=== PATIENT | female | born 1990 | race Two or more races ===

== ENCOUNTER 2023-09-16 17:06 | Emergency (ER) | payer OTHER ==
[~2023-09-16] VITALS: Ht 157.5 cm; Wt 83.0 kg
[2023-09-16] MEDS ORDERED: PRENA1 TRUE CO1 EACH (17:13)
[2023-09-16] MEDS ORDERED: PROMETRIUM200 MG PO (17:13)
[2023-09-16 17:53] LABS: HEMATOCRIT 36.5 % (36.0-45.00); HEMOGLOBIN 12.5 g/dL (12.0-15.00); MEAN CELL VOLUME 90.6 fL (80.00-100.00); MEAN CORPUSCULAR HGB CONC 34.3 g/dl (32.0-36.0); PLATELET COUNT 326 K/uL (150-450); RED BLOOD COUNT 4.03 M/uL (4.00-6.00); RED CELL DISTRIBUTION WIDTH 13.5 % (11.5-14.5)
[2023-09-16 18:17] LABS: INR < 0.93; PARTIAL THROMBOPLASTIN TIME 27.1 SECONDS (22.0-34.0); PROTHROMBIN TIME 9.6 SECONDS (9.0-11.5)
[2023-09-16 18:37] LABS: CALCIUM 8.7 mg/dL (8.5-10.1); CREATININE SERUM 0.52 mg/dL (0.55-1.02); GFR 134.98; POTASSIUM 3.71 mEq/L (3.5-5.1)
[2023-09-16 18:38] LABS: URINE APPEARANCE Clear; URINE BILIRRUBIN Negative (NEGATIVE); URINE BLOOD Small; URINE COLOR Yellow; URINE GLUCOSE Negative (NEGATIVE); URINE LEUKOCYTE Negative; URINE NITRATE Negative; URINE PROTEIN Negative (NEGATIVE)
[2023-09-16 18:41] LABS: URINE BACTERIA 196.4 uL (0.0-1933); URINE EPITHELIAL CELLS 3.3 uL (0.0-38.8); URINE RBC 16.5 uL (0.0-20.8); URINE WBC 5.2 uL (0.0-23.2)
== END 2023-09-16 21:46 ==
LOC: ER 17:07
PROVIDERS: Nurse Practitioner Family
DX: O20.8 Other hemorrhage in early pregnancy (principal); Z3A.08 8 weeks gestation of pregnancy